=== PATIENT | male | born 1975 | race Hispanic/Latino ===

== ENCOUNTER 2025-05-14 09:36 | Emergency (ER) | payer SELFPAY ==
[2025-05-14] MEDS ORDERED: CEFAZOLIN 2 GM VIAL ONE (09:49)
[2025-05-14 10:00] LABS: #Eosinophils Less than 0.03 10x3/uL (0.0-0.7); %Eosinophils 0.0 % (0.0-10.0); %Neutrophils 84.2 % (42.0-75.0)
[2025-05-14] MEDS ORDERED: Ketamine In 0.9 % NaCl 50 MG/5 ML SYRINGE ONE ×2 (10:12→10:19)
[2025-05-14] MEDS ORDERED: Lidocaine 1% PF 5 ML VIAL ONE (10:15)
[2025-05-14 10:17] LABS: #Basophils 0.03 10x3/uL (0.0-0.2); #Monocytes 0.58 10x3/uL (0.11-0.59); #Neutrophils 7.26 10x3/uL (1.40-6.50); %Basophils 0.3 % (0.0-1.0); %Lymphocytes 8.5 % (21.0-51.0); %Monocytes 6.7 % (0.0-10.0); Hematocrit 42.4 % (42.0-52.0); Hemoglobin 14.7 g/dL (14.0-18.0); Mean Corpuscular Hemoglobin 32.2 pg (27.0-31.0); Mean Corpuscular Volume 92.8 fL (78.0-98.0); Platelet Count 222 10x3/uL (130-400); Red Blood Cell (RBC) Count 4.57 mill/uL (4.70-6.10); White Blood Cell (WBC) Count 8.63 10x3/uL (4.8-10.8)
[2025-05-14 10:21] LABS: INR-International Normal Ratio 1.0; PTT 24.4 sec (22.9-36.1); Prothrombin Time 13.3 sec (12.0-14.7)
[2025-05-14 10:26] LABS: ALT (SGPT) 81 U/L (Less than 45); AST (SGOT) 70 U/L (11-34); Albumin 4.7 g/dL (3.1-4.5); Alkaline Phosphatase 57 U/L (40-110); Anion Gap 15 mmol/L (10-20); BUN (Urea Nitrogen) 6 mg/dL (8.9-20.6); Bilirubin, Total 0.4 mg/dL (0.3-1.2); Calc. Creatinine Clearance 0 mL/min (70-130); Calcium 9.3 mg/dL (7.8-10.44); Carbon Dioxide 24 mmol/L (22-29); Chloride 101 mmol/L (98-107); Globulin 3.3 g/dL (2.4-3.5); Glucose 135 mg/dL (70-105); Potassium 3.4 mmol/L (3.5-5.1); Sodium 137 mmol/L (136-145)
[2025-05-14] MEDS ORDERED: VANCOMYCIN 2 GRAM/400 ML BAG ONE (11:20)
== END 2025-05-14 11:37 | disposition short-term general hospital (02) ==
LOC: ERS 09:36
DX: S63.124A Dislocation of interphalangeal joint of right thumb, initial encounter (principal); F17.220 Nicotine dependence, chewing tobacco, uncomplicated; W22.8XXA Striking against or struck by other objects, initial encounter; Z55.6 Problems related to health literacy; Z75.8 Other problems related to medical facilities and other health care
CPT/HCPCS: 28660; 80053; 85025; 85610; 85730; 96365; 96366; 96375; 99152; J2060; J3010; J3375; J3490